=== PATIENT | female | born 1955 | race Caucasian/White ===

== ENCOUNTER 2020-09-05 12:04 | Inpatient (IN) | payer MEDICARE, OTHER ==
[~2020-09-05] VITALS: Ht 167.6 cm; Wt 117.0 kg
[2020-09-05] MEDS ORDERED: methylPREDNISolone SOD SUCC 125 MG/2 ML VL IV ONE (12:30)
[2020-09-05] MEDS ORDERED: cloNIDine HCL 0.1 MG TAB PO ONE (13:30)
[2020-09-05 13:51] LABS: Basophils # (auto) 0 10 ^3/uL (0-0.2); Basophils % (auto) 0.9 % (0.0-2.0); Eosinophils # (auto) 0 10 ^3/uL (0-0.8); Eosinophils % (auto) 0.1 % (0.0-7.0); Hematocrit 34.2 % (36.0-46.0); Hemoglobin 10.9 g/dL (12.2-16.2); Lymphocytes # (auto) 0.6 10 ^3/uL (0.4-5.4); Lymphocytes % (auto) 16.8 % (10.0-50.0); Mean Corpuscular Hemoglobin 30.5 pg (28.0-32.0); Mean Corpuscular Volume 95.3 fL (80.0-100.0); Monocytes # (auto) 0.3 10 ^3/uL (0-1.3); Monocytes % (auto) 7.1 % (0.0-12.0); Neutrophils # (auto) 2.9 10 ^3/uL (1.6-8.6); Neutrophils % (auto) 75.1 % (37.0-80.0); Nucleated Red Blood Cells % 0.1 %; Platelet Count (auto) 113 10^3/uL (140-450); Red Blood Cells 3.59 10^6/uL (4.0-5.20); Red Cell Distribution Width 15.2 % (11.8-14.3); White Blood Cell 3.8 10^3/uL (4.4-10.8)
[2020-09-05] MEDS ORDERED: hydrALAZINE HCL 25 MG TAB PO ONE (14:00)
[2020-09-05] MEDS ORDERED: amLODIPine BESYLATE 5 MG TAB PO ONE (14:00)
[2020-09-05] MEDS ORDERED: METOPROLOL TARTRATE 25 MG TAB PO ONE (14:00)
[2020-09-05] MEDS ORDERED: MORPHINE SULF INJ 2 MG/ML SYRINGE 1ML IV PRN (14:00)
[2020-09-05] MEDS ORDERED: NITROGLYCERIN 0.4 MG SL TAB SL PRN (14:00)
[2020-09-05 14:12] LABS: Albumin 2.8 g/dL (3.4-5.0); Calcium 7.5 mg/dL (8.5-10.1); Potassium 3.3 mmol/L (3.5-5.1)
[2020-09-05] MEDS ORDERED: hydrALAZINE HCL 20 MG/ML VL IV ONE ×2 (14:15→16:45)
[2020-09-05 14:22] LABS: BUN/Creatinine Ratio 11.3; CRP High Sensitivity 2.11 mg/dL (< 0.3); Total Protein 6.3 g/dL (6.4-8.2)
[2020-09-05] MEDS ORDERED: ALBUTEROL SULF 2.5 MG/0.5ML(0.5%) NEB SOLN NEB PRN (14:30)
[2020-09-05] MEDS ORDERED: TEMAZEPAM 15 MG CAP PO PRN (14:30)
[2020-09-05] MEDS ORDERED: ACETAMINOPHEN 500 MG TAB PO PRN (14:30)
[2020-09-05] MEDS ORDERED: PROMETHAZINE HCL 25 MG/ML 1ML IV PRN (14:30)
[2020-09-05] MEDS ORDERED: DEXTROSE (50%) 50ML SYRG IV PRN (14:30)
[2020-09-05] MEDS ORDERED: LACTULOSE 20Gm/30ML SOLN PO PRN (14:30)
[2020-09-05] MEDS ORDERED: traMADol HCL 50 MG TAB PO PRN (14:30)
[2020-09-05] MEDS: cefTRIAXone 1GM/50ML D5W 50 ML IV SCH (15:10)
[2020-09-05] MEDS ORDERED: EZET10TA22 PO (15:44)
[2020-09-05] MEDS ORDERED: INSUINJ48 SC (15:44)
[2020-09-05] MEDS ORDERED: HYDR50TA15 PO (15:44)
[2020-09-05] MEDS ORDERED: LEVO125T7 PO (15:44)
[2020-09-05] MEDS ORDERED: FLUT1SPR5 (15:44)
[2020-09-05] MEDS ORDERED: CLO01T PO (15:44)
[2020-09-05] MEDS ORDERED: AMLO10TA13 PO (15:44)
[2020-09-05] MEDS ORDERED: DOXA1TAB41 PO (15:44)
[2020-09-05] MEDS ORDERED: ALBUAER3 IN (15:44)
[2020-09-05] MEDS ORDERED: MET25T PO (15:44)
[2020-09-05] MEDS ORDERED: ATOR40TA52 PO (15:44)
[2020-09-05] MEDS ORDERED: CLOP75TA28 PO (15:44)
[2020-09-05] MEDS: ACCU-CHEK COMFORT CURVE STRIP VI SCH ×2 (16:49→23:00)
[2020-09-05] MEDS: InsuLIN REG 1unit/0.01ml Soln (100units/ml) SC SCH ×2 (16:49→23:00)
[2020-09-05] MEDS ORDERED: ALBUTEROL SULF 2.5 MG/0.5ML(0.5%) NEB SOLN NEB SCH (18:00)
[2020-09-05] MEDS ORDERED: IPRATROPIUM BROM 0.5 MG/2.5ML INH SOL NEB SCH (18:00)
[2020-09-05] MEDS: BUDESONIDE (INHALATION) 180 MCG IH IN SCH ×2 (19:57→22:00)
[2020-09-05] MEDS: ALBUTEROL SULF HFA 90MCG INH 200DOSE IN PRN ×2 (19:57→23:20)
[2020-09-05] MEDS: hydrALAZINE HCL 25 MG TAB PO SCH ×2 (20:21→23:00)
[2020-09-05] MEDS ORDERED: hydrALAZINE HCL 25 MG TAB PO SCH (22:00)
[2020-09-05] MEDS: METOPROLOL TARTRATE 25 MG TAB PO SCH (23:00)
[2020-09-05] MEDS: ENOXAPARIN SOD 40 MG/0.4 ML SYRINGE SC SCH (23:00)
[2020-09-05] MEDS: SODIUM CHLOR 0.9% PF (SALINE LOCK) 10ML VIAL/SYR IV SCH (23:00)
[2020-09-05] MEDS: DOXYCYCLINE 100MG/250ML 250 ML IV SCH (23:00)
[2020-09-06] MEDS: hydrALAZINE HCL 25 MG TAB PO SCH ×3 (06:12→22:29)
[2020-09-06] MEDS: SODIUM CHLOR 0.9% PF (SALINE LOCK) 10ML VIAL/SYR IV SCH ×3 (06:12→22:29)
[2020-09-06] MEDS ORDERED: SODIUM CHL 0.9% 1000 ML BAG XX ONE (07:00)
[2020-09-06] MEDS: ACCU-CHEK COMFORT CURVE STRIP VI SCH ×3 (07:00→22:00)
[2020-09-06] MEDS: InsuLIN REG 1unit/0.01ml Soln (100units/ml) SC SCH ×3 (07:00→22:00)
[2020-09-06 08:34] LABS: Urine Amorphous Crystal FEW /hpf (None Seen); Urine Bacteria NONE SEEN /hpf (None Seen); Urine Blood 1+ /uL (Negative); Urine Hyaline Cast FEW /lpf (0 - 2); Urine Specific Gravity 1.017 (1.001-1.035); Urine WBC 22 /hpf (0 - 5)
[2020-09-06 08:41] LABS: Sodium Urine 17 mmol/L (40-220)
[2020-09-06 08:44] LABS: Alcohol, Urine < 3.0 mg/dL (0-10); Amphetamine Screen, Urine NEGATIVE (NEGATIVE); Barbiturate Scree,Urine NEGATIVE (NEGATIVE); Benzodiazephine Screen, Urine NEGATIVE (NEGATIVE); Cannabinoid Screen, Urine NEGATIVE (NEGATIVE); Cocaine Screen, Urine NEGATIVE (NEGATIVE); Creatinine, Urine 155 mg/dL (30.0-125.0); Opiate Scree,Urine NEGATIVE (NEGATIVE); Phencyclidine Screen, Urine NEGATIVE (NEGATIVE)
[2020-09-06 08:52] LABS: Protein, Urine 759.9 mg/dL (0.0-11.9)
[2020-09-06] MEDS: cefTRIAXone 1GM/50ML D5W 50 ML IV SCH (09:00)
[2020-09-06] MEDS: DOXYCYCLINE 100MG/250ML 250 ML IV SCH ×2 (10:00→22:29)
[2020-09-06] MEDS: ASCORBIC ACID 1,000 MG TAB PO SCH (10:00)
[2020-09-06] MEDS: CHOLECALCIFEROL (VITD3) 2,000 UNIT CAP PO SCH (10:00)
[2020-09-06] MEDS: ZINC SULFATE 220mg CAP or TAB PO SCH (10:00)
[2020-09-06] MEDS: DexAMETHasone SOD PHOS 10MG/1ML VIAL INJ IV SCH (10:00)
[2020-09-06] MEDS: NITROGLYCERIN 0.2MG/HR TOPICAL PATCH TD SCH (10:00)
[2020-09-06] MEDS: BUDESONIDE (INHALATION) 180 MCG IH IN SCH (10:00)
[2020-09-06] MEDS: ENOXAPARIN SOD 40 MG/0.4 ML SYRINGE SC SCH ×2 (10:00→22:29)
[2020-09-06] MEDS: amLODIPine BESYLATE 5 MG TAB PO SCH (10:00)
[2020-09-06 10:53] LABS: Albumin 2.6 g/dL (3.4-5.0); Calcium 7.7 mg/dL (8.5-10.1); Potassium 3.6 mmol/L (3.5-5.1)
[2020-09-06 10:58] LABS: BUN/Creatinine Ratio 12.9; Bilirubin, Total 0.7 mg/dL (0.2-1.0); Phosphorus 4.7 mg/dL (2.5-4.90); Total Protein 5.9 g/dL (6.4-8.2)
[2020-09-06 11:10] LABS: Basophils # (auto) 0 10 ^3/uL (0-0.2); Basophils % (auto) 0.3 % (0.0-2.0); Eosinophils # (auto) 0 10 ^3/uL (0-0.8); Hematocrit 33.8 % (36.0-46.0); Lymphocytes # (auto) 0.3 10 ^3/uL (0.4-5.4); Lymphocytes % (auto) 16.1 % (10.0-50.0); Mean Corpuscular Hemoglobin 30.7 pg (28.0-32.0); Mean Corpuscular Hgb Conc. 32.5 g/dL (32.0-36.0); Mean Corpuscular Volume 94.6 fL (80.0-100.0); Monocytes # (auto) 0.2 10 ^3/uL (0-1.3); Monocytes % (auto) 8.3 % (0.0-12.0); Neutrophils # (auto) 1.6 10 ^3/uL (1.6-8.6); Neutrophils % (auto) 75.3 % (37.0-80.0); Nucleated Red Blood Cells % 0.3 %; Platelet Count (auto) 126 10^3/uL (140-450); Red Blood Cells 3.57 10^6/uL (4.0-5.20); Red Cell Distribution Width 15.1 % (11.8-14.3); White Blood Cell 2.1 10^3/uL (4.4-10.8)
[2020-09-06] MEDS: ALBUTEROL SULF HFA 90MCG INH 200DOSE IN PRN ×2 (13:12→19:33)
[2020-09-06] MEDS: METOPROLOL TARTRATE 25 MG TAB PO SCH ×2 (20:14)
[2020-09-06] MEDS ORDERED: EPOETIN ALFA 10,000 UNIT/1 ML VIAL SC ONE (21:00)
[2020-09-07] MEDS: MORPHINE SULF INJ 2 MG/ML SYRINGE 1ML IV PRN (02:52)
[2020-09-07] MEDS: cloNIDine HCL 0.1 MG TAB PO PRN (02:52)
[2020-09-07] MEDS: hydrALAZINE HCL 20 MG/ML VL IV PRN (04:30)
[2020-09-07] MEDS: SODIUM CHLOR 0.9% PF (SALINE LOCK) 10ML VIAL/SYR IV SCH ×3 (05:40→22:15)
[2020-09-07] MEDS: hydrALAZINE HCL 25 MG TAB PO SCH ×3 (05:40→21:58)
[2020-09-07] MEDS: BUDESONIDE (INHALATION) 180 MCG IH IN SCH ×2 (05:45→19:22)
[2020-09-07] MEDS: InsuLIN REG 1unit/0.01ml Soln (100units/ml) SC SCH ×4 (06:22→22:03)
[2020-09-07] MEDS: ACCU-CHEK COMFORT CURVE STRIP VI SCH ×4 (06:24→22:01)
[2020-09-07] MEDS: cefTRIAXone 1GM/50ML D5W 50 ML IV SCH (09:00)
[2020-09-07] MEDS: amLODIPine BESYLATE 5 MG TAB PO SCH (10:00)
[2020-09-07] MEDS: DexAMETHasone SOD PHOS 10MG/1ML VIAL INJ IV SCH (10:00)
[2020-09-07] MEDS: METOPROLOL TARTRATE 25 MG TAB PO SCH ×3 (10:00→17:47)
[2020-09-07] MEDS: ASCORBIC ACID 1,000 MG TAB PO SCH (10:00)
[2020-09-07] MEDS: ZINC SULFATE 220mg CAP or TAB PO SCH (10:00)
[2020-09-07] MEDS: ENOXAPARIN SOD 40 MG/0.4 ML SYRINGE SC SCH ×2 (10:00→21:58)
[2020-09-07] MEDS: CHOLECALCIFEROL (VITD3) 2,000 UNIT CAP PO SCH (10:00)
[2020-09-07] MEDS: NITROGLYCERIN 0.2MG/HR TOPICAL PATCH TD SCH (10:00)
[2020-09-07] MEDS: DOXYCYCLINE 100MG/250ML 250 ML IV SCH (22:00)
[2020-09-08] MEDS: cloNIDine HCL 0.1 MG TAB PO PRN ×2 (03:47→20:41)
[2020-09-08] MEDS: SODIUM CHLOR 0.9% PF (SALINE LOCK) 10ML VIAL/SYR IV SCH ×3 (05:01→22:24)
[2020-09-08] MEDS: ALBUTEROL SULF HFA 90MCG INH 200DOSE IN PRN (05:45)
[2020-09-08] MEDS: BUDESONIDE (INHALATION) 180 MCG IH IN SCH ×2 (05:45→06:08)
[2020-09-08] MEDS: CHOLECALCIFEROL (VITD3) 2,000 UNIT CAP PO SCH (08:52)
[2020-09-08] MEDS: DOXYCYCLINE 100MG/250ML 250 ML IV SCH ×2 (08:52→22:26)
[2020-09-08] MEDS: ZINC SULFATE 220mg CAP or TAB PO SCH (08:52)
[2020-09-08] MEDS: DexAMETHasone SOD PHOS 10MG/1ML VIAL INJ IV SCH (08:52)
[2020-09-08] MEDS: amLODIPine BESYLATE 5 MG TAB PO SCH (08:52)
[2020-09-08] MEDS: ASCORBIC ACID 1,000 MG TAB PO SCH (08:52)
[2020-09-08] MEDS: hydrALAZINE HCL 25 MG TAB PO SCH ×3 (08:52→22:26)
[2020-09-08] MEDS: cefTRIAXone 1GM/50ML D5W 50 ML IV SCH (08:52)
[2020-09-08] MEDS: ENOXAPARIN SOD 40 MG/0.4 ML SYRINGE SC SCH ×2 (08:53→22:25)
[2020-09-08] MEDS: NITROGLYCERIN 0.2MG/HR TOPICAL PATCH TD SCH (08:53)
[2020-09-08] MEDS: InsuLIN REG 1unit/0.01ml Soln (100units/ml) SC SCH ×4 (09:03→22:42)
[2020-09-08] MEDS: ACCU-CHEK COMFORT CURVE STRIP VI SCH ×4 (09:16→22:25)
[2020-09-08 12:56] LABS: Urine Amorphous Crystal FEW /hpf (None Seen); Urine Bacteria NONE SEEN /hpf (None Seen); Urine Blood 1+ /uL (Negative); Urine Hyaline Cast FEW /lpf (0 - 2); Urine Specific Gravity 1.019 (1.001-1.035); Urine WBC 2 /hpf (0 - 5)
[2020-09-08] MEDS: METOPROLOL TARTRATE 25 MG TAB PO SCH (22:25)
[2020-09-09] MEDS: hydrALAZINE HCL 20 MG/ML VL IV PRN (04:02)
[2020-09-09] MEDS: SODIUM CHLOR 0.9% PF (SALINE LOCK) 10ML VIAL/SYR IV SCH ×2 (05:44→11:36)
[2020-09-09] MEDS: hydrALAZINE HCL 25 MG TAB PO SCH ×2 (06:28→14:15)
[2020-09-09] MEDS: ACCU-CHEK COMFORT CURVE STRIP VI SCH ×3 (06:35→17:03)
[2020-09-09] MEDS: InsuLIN REG 1unit/0.01ml Soln (100units/ml) SC SCH ×3 (06:39→17:03)
[2020-09-09] MEDS: ALBUTEROL SULF HFA 90MCG INH 200DOSE IN PRN (07:20)
[2020-09-09] MEDS: BUDESONIDE (INHALATION) 180 MCG IH IN SCH ×2 (07:20→22:00)
[2020-09-09] MEDS: cefTRIAXone 1GM/50ML D5W 50 ML IV SCH (09:00)
[2020-09-09] MEDS: DexAMETHasone SOD PHOS 10MG/1ML VIAL INJ IV SCH (10:00)
[2020-09-09] MEDS: ZINC SULFATE 220mg CAP or TAB PO SCH (10:00)
[2020-09-09] MEDS: ENOXAPARIN SOD 40 MG/0.4 ML SYRINGE SC SCH (10:00)
[2020-09-09] MEDS: NITROGLYCERIN 0.2MG/HR TOPICAL PATCH TD SCH (10:00)
[2020-09-09] MEDS: METOPROLOL TARTRATE 25 MG TAB PO SCH (10:00)
[2020-09-09] MEDS: CHOLECALCIFEROL (VITD3) 2,000 UNIT CAP PO SCH (10:00)
[2020-09-09] MEDS: ASCORBIC ACID 1,000 MG TAB PO SCH (10:00)
[2020-09-09] MEDS: amLODIPine BESYLATE 5 MG TAB PO SCH (10:00)
[2020-09-09 10:25] LABS: Calcium 7.9 mg/dL (8.5-10.1)
[2020-09-09] MEDS ORDERED: ENOXAPARIN SOD 100 MG/1 ML SYRINGE SC ONE (11:02)
[2020-09-09] MEDS: DOXYCYCLINE 100MG/250ML 250 ML IV SCH (11:15)
[2020-09-10 00:20] VITALS: BP 175/71
[2020-09-10] MEDS: DOXYCYCLINE 100MG/250ML 250 ML IV SCH ×2 (00:27→08:43)
[2020-09-10] MEDS: SODIUM CHLOR 0.9% PF (SALINE LOCK) 10ML VIAL/SYR IV SCH ×4 (00:27→22:14)
[2020-09-10] MEDS: hydrALAZINE HCL 25 MG TAB PO SCH ×4 (00:28→22:14)
[2020-09-10] MEDS: ENOXAPARIN SOD 40 MG/0.4 ML SYRINGE SC SCH ×3 (00:29→22:15)
[2020-09-10] MEDS: METOPROLOL TARTRATE 25 MG TAB PO SCH ×3 (00:29→22:15)
[2020-09-10] MEDS: ACCU-CHEK COMFORT CURVE STRIP VI SCH ×5 (00:29→22:03)
[2020-09-10] MEDS: InsuLIN REG 1unit/0.01ml Soln (100units/ml) SC SCH ×5 (00:30→22:16)
[2020-09-10 05:30] VITALS: BP 158/83
[2020-09-10 06:03] VITALS: BP 158/83
[2020-09-10] MEDS: ALBUTEROL SULF HFA 90MCG INH 200DOSE IN PRN ×2 (06:35→21:59)
[2020-09-10] MEDS: BUDESONIDE (INHALATION) 180 MCG IH IN SCH ×2 (06:35→21:59)
[2020-09-10] MEDS: cefTRIAXone 1GM/50ML D5W 50 ML IV SCH (08:43)
[2020-09-10] MEDS: DexAMETHasone SOD PHOS 10MG/1ML VIAL INJ IV SCH (08:43)
[2020-09-10] MEDS: ZINC SULFATE 220mg CAP or TAB PO SCH (08:43)
[2020-09-10] MEDS: ASCORBIC ACID 1,000 MG TAB PO SCH (08:44)
[2020-09-10] MEDS: CHOLECALCIFEROL (VITD3) 2,000 UNIT CAP PO SCH (08:44)
[2020-09-10] MEDS: amLODIPine BESYLATE 5 MG TAB PO SCH (08:44)
[2020-09-10] MEDS: NITROGLYCERIN 0.2MG/HR TOPICAL PATCH TD SCH (08:45)
[2020-09-10 13:13] VITALS: BP 143/73
[2020-09-10] MEDS ORDERED: SODIUM CHL 0.9% 1000 ML BAG XX ONE (16:30)
[2020-09-10 17:25] VITALS: BP 162/77
[2020-09-10] MEDS: cloNIDine HCL 0.1 MG TAB PO PRN (18:36)
[2020-09-10 21:08] VITALS: BP 130/75
[2020-09-11 05:00] VITALS: BP 154/69
[2020-09-11] MEDS: hydrALAZINE HCL 25 MG TAB PO SCH ×3 (05:15→21:35)
[2020-09-11] MEDS: SODIUM CHLOR 0.9% PF (SALINE LOCK) 10ML VIAL/SYR IV SCH ×3 (05:47→21:35)
[2020-09-11] MEDS: ACCU-CHEK COMFORT CURVE STRIP VI SCH ×4 (06:12→21:36)
[2020-09-11] MEDS: ALBUTEROL SULF HFA 90MCG INH 200DOSE IN PRN ×2 (06:35→20:01)
[2020-09-11] MEDS: BUDESONIDE (INHALATION) 180 MCG IH IN SCH ×2 (06:35→20:01)
[2020-09-11] MEDS: InsuLIN REG 1unit/0.01ml Soln (100units/ml) SC SCH ×4 (06:47→21:36)
[2020-09-11] MEDS: cefTRIAXone 1GM/50ML D5W 50 ML IV SCH (08:45)
[2020-09-11] MEDS: DexAMETHasone SOD PHOS 10MG/1ML VIAL INJ IV SCH (08:45)
[2020-09-11] MEDS: ZINC SULFATE 220mg CAP or TAB PO SCH (08:45)
[2020-09-11] MEDS: CHOLECALCIFEROL (VITD3) 2,000 UNIT CAP PO SCH (08:46)
[2020-09-11] MEDS: ASCORBIC ACID 1,000 MG TAB PO SCH (08:46)
[2020-09-11] MEDS: METOPROLOL TARTRATE 25 MG TAB PO SCH ×2 (08:46→21:36)
[2020-09-11] MEDS: ENOXAPARIN SOD 40 MG/0.4 ML SYRINGE SC SCH ×2 (08:47→21:36)
[2020-09-11] MEDS: amLODIPine BESYLATE 5 MG TAB PO SCH (08:47)
[2020-09-11] MEDS: NITROGLYCERIN 0.2MG/HR TOPICAL PATCH TD SCH (08:48)
[2020-09-11 09:00] VITALS: BP 145/69
[2020-09-11 13:00] VITALS: BP 145/69
[2020-09-11 17:00] VITALS: BP 150/68
[2020-09-11 21:30] VITALS: BP 163/74
[2020-09-12 05:30] VITALS: BP 150/68
[2020-09-12] MEDS: SODIUM CHLOR 0.9% PF (SALINE LOCK) 10ML VIAL/SYR IV SCH ×3 (06:35→21:30)
[2020-09-12] MEDS: ACCU-CHEK COMFORT CURVE STRIP VI SCH ×4 (06:35→21:30)
[2020-09-12] MEDS: hydrALAZINE HCL 25 MG TAB PO SCH ×3 (06:35→22:04)
[2020-09-12] MEDS: InsuLIN REG 1unit/0.01ml Soln (100units/ml) SC SCH ×4 (06:55→22:06)
[2020-09-12] MEDS ORDERED: SODIUM CHL 0.9% 1000 ML BAG XX ONE (08:45)
[2020-09-12 09:00] VITALS: BP 158/76
[2020-09-12] MEDS: BUDESONIDE (INHALATION) 180 MCG IH IN SCH ×2 (10:00→18:22)
[2020-09-12] MEDS: MORPHINE SULF INJ 2 MG/ML SYRINGE 1ML IV PRN ×2 (11:00→17:13)
[2020-09-12] MEDS: ENOXAPARIN SOD 40 MG/0.4 ML SYRINGE SC SCH ×2 (11:00→22:04)
[2020-09-12] MEDS: cefTRIAXone 1GM/50ML D5W 50 ML IV SCH (11:00)
[2020-09-12] MEDS: METOPROLOL TARTRATE 25 MG TAB PO SCH ×2 (11:01→22:04)
[2020-09-12] MEDS: ZINC SULFATE 220mg CAP or TAB PO SCH (11:01)
[2020-09-12] MEDS: amLODIPine BESYLATE 5 MG TAB PO SCH (11:02)
[2020-09-12] MEDS: CHOLECALCIFEROL (VITD3) 2,000 UNIT CAP PO SCH (11:02)
[2020-09-12] MEDS: ASCORBIC ACID 1,000 MG TAB PO SCH (11:02)
[2020-09-12] MEDS: NITROGLYCERIN 0.2MG/HR TOPICAL PATCH TD SCH (11:03)
[2020-09-12] MEDS: DexAMETHasone SOD PHOS 10MG/1ML VIAL INJ IV SCH (11:03)
[2020-09-12 13:00] VITALS: BP 145/69
[2020-09-12 13:10] VITALS: BP 140/67
[2020-09-12 17:00] VITALS: BP 154/66
[2020-09-12] MEDS: ALBUTEROL SULF HFA 90MCG INH 200DOSE IN PRN (18:21)
[2020-09-12 22:00] VITALS: BP 151/72
[2020-09-12] MEDS: LORazepam 2MG/ML-1ML VIAL IV PRN (22:25)
[2020-09-13 05:00] VITALS: BP 148/64
[2020-09-13] MEDS: SODIUM CHLOR 0.9% PF (SALINE LOCK) 10ML VIAL/SYR IV SCH ×3 (05:57→21:41)
[2020-09-13] MEDS: ACCU-CHEK COMFORT CURVE STRIP VI SCH ×4 (05:57→20:44)
[2020-09-13] MEDS: hydrALAZINE HCL 25 MG TAB PO SCH ×3 (05:57→21:42)
[2020-09-13] MEDS: InsuLIN REG 1unit/0.01ml Soln (100units/ml) SC SCH ×4 (06:00→21:44)
[2020-09-13] MEDS: BUDESONIDE (INHALATION) 180 MCG IH IN SCH ×2 (06:03→22:19)
[2020-09-13] MEDS: ALBUTEROL SULF HFA 90MCG INH 200DOSE IN PRN ×2 (06:08→22:19)
[2020-09-13 06:37] LABS: Basophils # (auto) 0 10 ^3/uL (0-0.2); Basophils % (auto) 0.1 % (0.0-2.0); Eosinophils # (auto) 0 10 ^3/uL (0-0.8); Eosinophils % (auto) 0.1 % (0.0-7.0); Hematocrit 33.3 % (36.0-46.0); Hemoglobin 11.1 g/dL (12.2-16.2); Lymphocytes # (auto) 0.4 10 ^3/uL (0.4-5.4); Lymphocytes % (auto) 6.2 % (10.0-50.0); Mean Corpuscular Hgb Conc. 33.2 g/dL (32.0-36.0); Mean Corpuscular Volume 93.5 fL (80.0-100.0); Monocytes # (auto) 0.4 10 ^3/uL (0-1.3); Monocytes % (auto) 5.2 % (0.0-12.0); Neutrophils # (auto) 6.3 10 ^3/uL (1.6-8.6); Neutrophils % (auto) 88.4 % (37.0-80.0); Platelet Count (auto) 123 10^3/uL (140-450); Red Blood Cells 3.56 10^6/uL (4.0-5.20); Red Cell Distribution Width 14.9 % (11.8-14.3); White Blood Cell 7.2 10^3/uL (4.4-10.8)
[2020-09-13 06:50] LABS: Potassium 4.6 mmol/L (3.5-5.1)
[2020-09-13 07:15] LABS: Albumin 2.2 g/dL (3.4-5.0); BUN/Creatinine Ratio 22.9; Bilirubin, Total 0.9 mg/dL (0.2-1.0); Total Protein 5.7 g/dL (6.4-8.2)
[2020-09-13 08:53] VITALS: BP 146/62
[2020-09-13] MEDS: ZINC SULFATE 220mg CAP or TAB PO SCH (09:05)
[2020-09-13] MEDS: METOPROLOL TARTRATE 25 MG TAB PO SCH ×2 (09:05→21:43)
[2020-09-13] MEDS: DexAMETHasone SOD PHOS 10MG/1ML VIAL INJ IV SCH (09:05)
[2020-09-13] MEDS: CHOLECALCIFEROL (VITD3) 2,000 UNIT CAP PO SCH (09:06)
[2020-09-13] MEDS: amLODIPine BESYLATE 5 MG TAB PO SCH (09:06)
[2020-09-13] MEDS: ASCORBIC ACID 1,000 MG TAB PO SCH (09:06)
[2020-09-13] MEDS: ENOXAPARIN SOD 40 MG/0.4 ML SYRINGE SC SCH ×2 (09:06→21:43)
[2020-09-13] MEDS: NITROGLYCERIN 0.2MG/HR TOPICAL PATCH TD SCH (09:07)
[2020-09-13 12:51] VITALS: BP 121/58
[2020-09-13 16:37] VITALS: BP 136/59
[2020-09-13 21:16] VITALS: BP 159/69
[2020-09-13] MEDS: LORazepam 2MG/ML-1ML VIAL IV PRN (22:26)
[2020-09-14 05:00] VITALS: BP 144/72
[2020-09-14] MEDS: ACCU-CHEK COMFORT CURVE STRIP VI SCH ×4 (05:31→21:46)
[2020-09-14] MEDS: SODIUM CHLOR 0.9% PF (SALINE LOCK) 10ML VIAL/SYR IV SCH ×3 (05:34→21:43)
[2020-09-14] MEDS: hydrALAZINE HCL 25 MG TAB PO SCH ×3 (05:34→21:43)
[2020-09-14] MEDS: InsuLIN REG 1unit/0.01ml Soln (100units/ml) SC SCH ×4 (05:37→21:54)
[2020-09-14] MEDS: BUDESONIDE (INHALATION) 180 MCG IH IN SCH ×2 (05:55→06:18)
[2020-09-14] MEDS: ENOXAPARIN SOD 40 MG/0.4 ML SYRINGE SC SCH ×2 (08:40→21:45)
[2020-09-14] MEDS: DexAMETHasone SOD PHOS 10MG/1ML VIAL INJ IV SCH (08:40)
[2020-09-14] MEDS: NITROGLYCERIN 0.2MG/HR TOPICAL PATCH TD SCH (08:42)
[2020-09-14] MEDS: amLODIPine BESYLATE 5 MG TAB PO SCH (08:42)
[2020-09-14] MEDS: ASCORBIC ACID 1,000 MG TAB PO SCH (08:42)
[2020-09-14] MEDS: ZINC SULFATE 220mg CAP or TAB PO SCH (08:43)
[2020-09-14] MEDS: CHOLECALCIFEROL (VITD3) 2,000 UNIT CAP PO SCH (08:43)
[2020-09-14] MEDS: METOPROLOL TARTRATE 25 MG TAB PO SCH ×2 (08:43→21:44)
[2020-09-14 09:00] VITALS: BP 144/68
[2020-09-14 12:55] VITALS: BP 124/61
[2020-09-14] MEDS: LORazepam 2MG/ML-1ML VIAL IV PRN (21:30)
[2020-09-14 22:00] VITALS: BP 145/61
[2020-09-15 05:00] VITALS: BP 145/80
[2020-09-15] MEDS: SODIUM CHLOR 0.9% PF (SALINE LOCK) 10ML VIAL/SYR IV SCH ×3 (05:53→22:37)
[2020-09-15] MEDS: hydrALAZINE HCL 25 MG TAB PO SCH ×3 (05:54→22:38)
[2020-09-15] MEDS: ALBUTEROL SULF HFA 90MCG INH 200DOSE IN PRN ×2 (05:55→18:57)
[2020-09-15] MEDS: BUDESONIDE (INHALATION) 180 MCG IH IN SCH ×2 (05:55→18:57)
[2020-09-15] MEDS: LORazepam 2MG/ML-1ML VIAL IV PRN (06:52)
[2020-09-15] MEDS: ACCU-CHEK COMFORT CURVE STRIP VI SCH ×4 (06:53→22:39)
[2020-09-15] MEDS: LEVOTHYROXINE SODIUM 50 MCG TAB PO SCH (06:53)
[2020-09-15] MEDS: InsuLIN REG 1unit/0.01ml Soln (100units/ml) SC SCH ×4 (06:54→22:43)
[2020-09-15] MEDS ORDERED: SODIUM CHL 0.9% 1000 ML BAG XX ONE (07:00)
[2020-09-15 09:00] VITALS: BP_SYST 124; BP_SYST 163; BP_DIAS 73; BP_DIAS 75
[2020-09-15] MEDS: ZINC SULFATE 220mg CAP or TAB PO SCH (10:25)
[2020-09-15] MEDS: DexAMETHasone SOD PHOS 10MG/1ML VIAL INJ IV SCH (10:25)
[2020-09-15] MEDS: CHOLECALCIFEROL (VITD3) 2,000 UNIT CAP PO SCH (10:25)
[2020-09-15] MEDS: METOPROLOL TARTRATE 25 MG TAB PO SCH ×2 (10:26→22:38)
[2020-09-15] MEDS: amLODIPine BESYLATE 5 MG TAB PO SCH (10:26)
[2020-09-15] MEDS: ENOXAPARIN SOD 40 MG/0.4 ML SYRINGE SC SCH ×2 (10:28→22:39)
[2020-09-15] MEDS: NITROGLYCERIN 0.2MG/HR TOPICAL PATCH TD SCH (10:28)
[2020-09-15] MEDS: ASCORBIC ACID 1,000 MG TAB PO SCH (11:46)
[2020-09-15 13:00] VITALS: BP 132/86
[2020-09-15 17:00] VITALS: BP 135/62
[2020-09-15 22:00] VITALS: BP 154/78
[2020-09-16 05:00] VITALS: BP 151/71
[2020-09-16] MEDS: SODIUM CHLOR 0.9% PF (SALINE LOCK) 10ML VIAL/SYR IV SCH ×3 (05:51→22:23)
[2020-09-16] MEDS: hydrALAZINE HCL 25 MG TAB PO SCH ×3 (05:52→22:23)
[2020-09-16] MEDS: ALBUTEROL SULF HFA 90MCG INH 200DOSE IN PRN ×2 (05:55→20:01)
[2020-09-16] MEDS: BUDESONIDE (INHALATION) 180 MCG IH IN SCH ×2 (05:55→20:01)
[2020-09-16 06:27] LABS: Basophils # (auto) 0 10 ^3/uL (0-0.2); Basophils % (auto) 0.2 % (0.0-2.0); Eosinophils # (auto) 0 10 ^3/uL (0-0.8); Eosinophils % (auto) 0.1 % (0.0-7.0); Hematocrit 31.8 % (36.0-46.0); Hemoglobin 10.5 g/dL (12.2-16.2); Lymphocytes # (auto) 0.5 10 ^3/uL (0.4-5.4); Lymphocytes % (auto) 3.9 % (10.0-50.0); Mean Corpuscular Hemoglobin 30.9 pg (28.0-32.0); Mean Corpuscular Hgb Conc. 33.1 g/dL (32.0-36.0); Mean Corpuscular Volume 93.4 fL (80.0-100.0); Monocytes # (auto) 0.5 10 ^3/uL (0-1.3); Monocytes % (auto) 3.6 % (0.0-12.0); Neutrophils # (auto) 12.4 10 ^3/uL (1.6-8.6); Neutrophils % (auto) 92.2 % (37.0-80.0); Platelet Count (auto) 147 10^3/uL (140-450); Red Cell Distribution Width 14.5 % (11.8-14.3); White Blood Cell 13.5 10^3/uL (4.4-10.8)
[2020-09-16 06:45] LABS: BUN/Creatinine Ratio 27.5; Bilirubin, Total 0.7 mg/dL (0.2-1.0); Calcium 7.7 mg/dL (8.5-10.1); Magnesium 2.7 mg/dL (1.6-2.6); Total Protein 5.4 g/dL (6.4-8.2)
[2020-09-16] MEDS: LEVOTHYROXINE SODIUM 50 MCG TAB PO SCH (07:03)
[2020-09-16] MEDS: ACCU-CHEK COMFORT CURVE STRIP VI SCH ×4 (07:04→22:24)
[2020-09-16] MEDS: InsuLIN REG 1unit/0.01ml Soln (100units/ml) SC SCH ×4 (07:07→22:32)
[2020-09-16] MEDS: ZINC SULFATE 220mg CAP or TAB PO SCH (10:11)
[2020-09-16] MEDS: DexAMETHasone SOD PHOS 10MG/1ML VIAL INJ IV SCH (10:12)
[2020-09-16] MEDS: METOPROLOL TARTRATE 25 MG TAB PO SCH ×2 (10:14→22:24)
[2020-09-16] MEDS: amLODIPine BESYLATE 5 MG TAB PO SCH (10:16)
[2020-09-16] MEDS: ASCORBIC ACID 1,000 MG TAB PO SCH (10:18)
[2020-09-16] MEDS: CHOLECALCIFEROL (VITD3) 2,000 UNIT CAP PO SCH (10:20)
[2020-09-16] MEDS: ENOXAPARIN SOD 40 MG/0.4 ML SYRINGE SC SCH ×2 (10:20→22:00)
[2020-09-16] MEDS: NITROGLYCERIN 0.2MG/HR TOPICAL PATCH TD SCH (10:21)
[2020-09-16] MEDS: DOPamine 1600MCG/ML D5W 250 ML IV SCH (18:32)
[2020-09-16 21:00] VITALS: BP 129/48
[2020-09-17 05:00] VITALS: BP 131/75
[2020-09-17] MEDS: hydrALAZINE HCL 25 MG TAB PO SCH ×3 (05:49→22:34)
[2020-09-17] MEDS: InsuLIN REG 1unit/0.01ml Soln (100units/ml) SC SCH ×4 (06:16→22:37)
[2020-09-17] MEDS: ACCU-CHEK COMFORT CURVE STRIP VI SCH ×4 (06:16→22:34)
[2020-09-17] MEDS: SODIUM CHLOR 0.9% PF (SALINE LOCK) 10ML VIAL/SYR IV SCH ×3 (06:17→22:34)
[2020-09-17] MEDS: LEVOTHYROXINE SODIUM 50 MCG TAB PO SCH (06:17)
[2020-09-17] MEDS: BUDESONIDE (INHALATION) 180 MCG IH IN SCH ×2 (06:48→21:08)
[2020-09-17] MEDS: ALBUTEROL SULF HFA 90MCG INH 200DOSE IN PRN ×2 (06:48→21:08)
[2020-09-17] MEDS ORDERED: SODIUM CHL 0.9% 1000 ML BAG XX ONE (07:00)
[2020-09-17 07:11] LABS: Basophils # (auto) 0 10 ^3/uL (0-0.2); Basophils % (auto) 0.2 % (0.0-2.0); Eosinophils # (auto) 0 10 ^3/uL (0-0.8); Eosinophils % (auto) 0.1 % (0.0-7.0); Hematocrit 34.2 % (36.0-46.0); Hemoglobin 11.4 g/dL (12.2-16.2); Lymphocytes # (auto) 0.6 10 ^3/uL (0.4-5.4); Lymphocytes % (auto) 3.2 % (10.0-50.0); Mean Corpuscular Hemoglobin 31.4 pg (28.0-32.0); Mean Corpuscular Hgb Conc. 33.4 g/dL (32.0-36.0); Mean Corpuscular Volume 94.1 fL (80.0-100.0); Monocytes # (auto) 0.8 10 ^3/uL (0-1.3); Monocytes % (auto) 3.9 % (0.0-12.0); Neutrophils % (auto) 92.6 % (37.0-80.0); Nucleated Red Blood Cells % 0.1 %; Platelet Count (auto) 195 10^3/uL (140-450); Red Blood Cells 3.64 10^6/uL (4.0-5.20); Red Cell Distribution Width 14.6 % (11.8-14.3); White Blood Cell 19.5 10^3/uL (4.4-10.8)
[2020-09-17 07:15] LABS: Calcium 8.3 mg/dL (8.5-10.1); Potassium 5.2 mmol/L (3.5-5.1)
[2020-09-17 07:20] LABS: Albumin 2.3 g/dL (3.4-5.0); BUN/Creatinine Ratio 29.8; Total Protein 6.2 g/dL (6.4-8.2)
[2020-09-17 08:00] VITALS: BP 142/72
[2020-09-17] MEDS: amLODIPine BESYLATE 5 MG TAB PO SCH (10:00)
[2020-09-17] MEDS: ASCORBIC ACID 1,000 MG TAB PO SCH (10:00)
[2020-09-17] MEDS: ZINC SULFATE 220mg CAP or TAB PO SCH (10:00)
[2020-09-17] MEDS: CHOLECALCIFEROL (VITD3) 2,000 UNIT CAP PO SCH (10:00)
[2020-09-17] MEDS: DexAMETHasone SOD PHOS 10MG/1ML VIAL INJ IV SCH (10:00)
[2020-09-17] MEDS: ENOXAPARIN SOD 40 MG/0.4 ML SYRINGE SC SCH ×2 (10:00→22:34)
[2020-09-17] MEDS: METOPROLOL TARTRATE 25 MG TAB PO SCH ×2 (10:00→22:35)
[2020-09-17] MEDS: NITROGLYCERIN 0.2MG/HR TOPICAL PATCH TD SCH (10:00)
[2020-09-17 12:00] VITALS: BP 132/65
[2020-09-17] MEDS ORDERED: ETOMIDATE (2MG/ML) 20ML VIAL IV ONE (12:28)
[2020-09-17] MEDS ORDERED: SUCCINYLCHOLINE CHLORIDE 20 MG/ML 10ML VIAL IV ONE (12:28)
[2020-09-17] MEDS ORDERED: ROCURONIUM 10MG/ML 10ML VIAL IV ONE (12:28)
[2020-09-17] MEDS: DOPamine 1600MCG/ML D5W 250 ML IV SCH (14:44)
[2020-09-17 15:00] VITALS: BP 141/71
[2020-09-17 21:00] VITALS: BP 134/70
[2020-09-17] MEDS ORDERED: EPOETIN ALFA 10,000 UNIT/1 ML VIAL SC ONE (21:00)
[2020-09-18 05:00] VITALS: BP 130/60
[2020-09-18] MEDS: hydrALAZINE HCL 25 MG TAB PO SCH ×3 (05:59→22:03)
[2020-09-18] MEDS: SODIUM CHLOR 0.9% PF (SALINE LOCK) 10ML VIAL/SYR IV SCH ×3 (06:20→22:03)
[2020-09-18] MEDS: LEVOTHYROXINE SODIUM 50 MCG TAB PO SCH (06:20)
[2020-09-18] MEDS: ACCU-CHEK COMFORT CURVE STRIP VI SCH ×4 (06:23→22:04)
[2020-09-18] MEDS: InsuLIN REG 1unit/0.01ml Soln (100units/ml) SC SCH ×4 (06:23→22:08)
[2020-09-18 06:38] LABS: Albumin 2.2 g/dL (3.4-5.0); BUN/Creatinine Ratio 30.4; Bilirubin, Total 0.9 mg/dL (0.2-1.0); Calcium 8.2 mg/dL (8.5-10.1); Total Protein 6.2 g/dL (6.4-8.2)
[2020-09-18 06:48] LABS: Potassium 5.6 mmol/L (3.5-5.1)
[2020-09-18] MEDS ORDERED: SODIUM ZIRCONIUM CYCL 10 GM PAK PO ONE (07:00)
[2020-09-18 08:48] VITALS: BP 130/60
[2020-09-18 08:51] VITALS: BP 139/54
[2020-09-18] MEDS: BUDESONIDE (INHALATION) 180 MCG IH IN SCH ×2 (09:01→22:10)
[2020-09-18] MEDS: ALBUTEROL SULF HFA 90MCG INH 200DOSE IN PRN ×2 (09:01→22:10)
[2020-09-18] MEDS: CHOLECALCIFEROL (VITD3) 2,000 UNIT CAP PO SCH (10:00)
[2020-09-18] MEDS: METOPROLOL TARTRATE 25 MG TAB PO SCH ×2 (10:00→22:04)
[2020-09-18] MEDS: NITROGLYCERIN 0.2MG/HR TOPICAL PATCH TD SCH (10:00)
[2020-09-18] MEDS: ASCORBIC ACID 1,000 MG TAB PO SCH (10:00)
[2020-09-18] MEDS: ZINC SULFATE 220mg CAP or TAB PO SCH (10:00)
[2020-09-18] MEDS: ENOXAPARIN SOD 40 MG/0.4 ML SYRINGE SC SCH ×2 (10:00→22:04)
[2020-09-18] MEDS: DexAMETHasone SOD PHOS 10MG/1ML VIAL INJ IV SCH (10:00)
[2020-09-18] MEDS: amLODIPine BESYLATE 5 MG TAB PO SCH (10:00)
[2020-09-18] MEDS: LORazepam 2MG/ML-1ML VIAL IV PRN (11:52)
[2020-09-18 12:30] VITALS: BP 146/67
[2020-09-18] MEDS ORDERED: FUROSEMIDE 100 MG/10ML VIAL IV ONE (12:45)
[2020-09-18] MEDS: DOPamine 1600MCG/ML D5W 250 ML IV SCH (12:58)
[2020-09-18 15:51] VITALS: BP 136/68
[2020-09-18 22:00] VITALS: BP 142/68
[2020-09-19 05:00] VITALS: BP 143/73
[2020-09-19] MEDS: SODIUM CHLOR 0.9% PF (SALINE LOCK) 10ML VIAL/SYR IV SCH ×3 (05:46→22:15)
[2020-09-19] MEDS: hydrALAZINE HCL 25 MG TAB PO SCH ×3 (06:18→22:16)
[2020-09-19] MEDS: LEVOTHYROXINE SODIUM 50 MCG TAB PO SCH (06:19)
[2020-09-19] MEDS: ACCU-CHEK COMFORT CURVE STRIP VI SCH ×4 (06:19→22:16)
[2020-09-19] MEDS: InsuLIN REG 1unit/0.01ml Soln (100units/ml) SC SCH ×4 (06:23→22:20)
[2020-09-19 06:30] LABS: Albumin 2.1 g/dL (3.4-5.0); BUN/Creatinine Ratio 28.6; Bilirubin, Total 0.9 mg/dL (0.2-1.0); Calcium 7.9 mg/dL (8.5-10.1)
[2020-09-19 09:00] VITALS: BP 144/68
[2020-09-19] MEDS: METOPROLOL TARTRATE 25 MG TAB PO SCH ×2 (10:00→22:16)
[2020-09-19] MEDS: amLODIPine BESYLATE 5 MG TAB PO SCH (10:00)
[2020-09-19] MEDS: BUDESONIDE (INHALATION) 180 MCG IH IN SCH ×2 (10:00→19:46)
[2020-09-19] MEDS: ZINC SULFATE 220mg CAP or TAB PO SCH (10:26)
[2020-09-19] MEDS: CHOLECALCIFEROL (VITD3) 2,000 UNIT CAP PO SCH (10:26)
[2020-09-19] MEDS: ASCORBIC ACID 1,000 MG TAB PO SCH (10:26)
[2020-09-19] MEDS: ENOXAPARIN SOD 40 MG/0.4 ML SYRINGE SC SCH ×2 (10:26→22:16)
[2020-09-19] MEDS: DexAMETHasone SOD PHOS 10MG/1ML VIAL INJ IV SCH (10:26)
[2020-09-19] MEDS: NITROGLYCERIN 0.2MG/HR TOPICAL PATCH TD SCH (10:30)
[2020-09-19] MEDS: DOPamine 1600MCG/ML D5W 250 ML IV SCH (11:12)
[2020-09-19 13:00] VITALS: BP 123/65
[2020-09-19] MEDS: ALBUTEROL SULF HFA 90MCG INH 200DOSE IN PRN ×2 (16:36→19:46)
[2020-09-19 17:00] VITALS: BP 135/68
[2020-09-19 22:00] VITALS: BP 147/73
[2020-09-20 05:00] VITALS: BP 126/73
[2020-09-20] MEDS: hydrALAZINE HCL 25 MG TAB PO SCH ×3 (05:48→22:36)
[2020-09-20] MEDS: SODIUM CHLOR 0.9% PF (SALINE LOCK) 10ML VIAL/SYR IV SCH ×3 (05:48→22:36)
[2020-09-20] MEDS: ACCU-CHEK COMFORT CURVE STRIP VI SCH ×4 (06:25→22:37)
[2020-09-20] MEDS: LEVOTHYROXINE SODIUM 50 MCG TAB PO SCH (06:25)
[2020-09-20] MEDS: InsuLIN REG 1unit/0.01ml Soln (100units/ml) SC SCH ×4 (06:41→23:37)
[2020-09-20] MEDS ORDERED: SODIUM CHL 0.9% 1000 ML BAG XX ONE ×2 (07:00→09:45)
[2020-09-20] MEDS: BUDESONIDE (INHALATION) 180 MCG IH IN SCH ×2 (07:08→22:00)
[2020-09-20] MEDS: ALBUTEROL SULF HFA 90MCG INH 200DOSE IN PRN (07:12)
[2020-09-20 09:00] VITALS: BP 115/67
[2020-09-20 09:53] LABS: Calcium 7.9 mg/dL (8.5-10.1)
[2020-09-20 09:56] LABS: BUN/Creatinine Ratio 31.6; Bilirubin, Total 0.9 mg/dL (0.2-1.0); Total Protein 5.8 g/dL (6.4-8.2)
[2020-09-20] MEDS: DOPamine 1600MCG/ML D5W 250 ML IV SCH (10:13)
[2020-09-20] MEDS: DexAMETHasone SOD PHOS 10MG/1ML VIAL INJ IV SCH (10:13)
[2020-09-20] MEDS: ZINC SULFATE 220mg CAP or TAB PO SCH (10:14)
[2020-09-20] MEDS: ENOXAPARIN SOD 40 MG/0.4 ML SYRINGE SC SCH ×2 (10:14→22:37)
[2020-09-20] MEDS: CHOLECALCIFEROL (VITD3) 2,000 UNIT CAP PO SCH (10:14)
[2020-09-20] MEDS: ASCORBIC ACID 1,000 MG TAB PO SCH (10:14)
[2020-09-20] MEDS: amLODIPine BESYLATE 5 MG TAB PO SCH (12:14)
[2020-09-20] MEDS: METOPROLOL TARTRATE 25 MG TAB PO SCH ×2 (12:14→22:37)
[2020-09-20] MEDS: NITROGLYCERIN 0.2MG/HR TOPICAL PATCH TD SCH (12:15)
[2020-09-20 13:00] VITALS: BP 135/70
[2020-09-20] MEDS: LORazepam 2MG/ML-1ML VIAL IV PRN (14:37)
[2020-09-20 17:00] VITALS: BP 126/63
[2020-09-20 21:27] VITALS: BP 142/69
[2020-09-21] MEDS: hydrALAZINE HCL 25 MG TAB PO SCH ×3 (05:36→22:38)
[2020-09-21] MEDS: SODIUM CHLOR 0.9% PF (SALINE LOCK) 10ML VIAL/SYR IV SCH ×3 (05:37→22:39)
[2020-09-21 06:19] VITALS: BP 124/68
[2020-09-21] MEDS: BUDESONIDE (INHALATION) 180 MCG IH IN SCH ×2 (06:20→18:42)
[2020-09-21] MEDS: LEVOTHYROXINE SODIUM 50 MCG TAB PO SCH (06:50)
[2020-09-21] MEDS: ACCU-CHEK COMFORT CURVE STRIP VI SCH ×4 (06:50→22:00)
[2020-09-21] MEDS: InsuLIN REG 1unit/0.01ml Soln (100units/ml) SC SCH ×4 (06:55→22:00)
[2020-09-21] MEDS ORDERED: SODIUM CHL 0.9% 1000 ML BAG XX ONE (07:00)
[2020-09-21 09:00] VITALS: BP 136/59
[2020-09-21] MEDS: ASCORBIC ACID 1,000 MG TAB PO SCH (09:08)
[2020-09-21] MEDS: CHOLECALCIFEROL (VITD3) 2,000 UNIT CAP PO SCH (09:08)
[2020-09-21] MEDS: DexAMETHasone SOD PHOS 10MG/1ML VIAL INJ IV SCH (09:09)
[2020-09-21] MEDS: ZINC SULFATE 220mg CAP or TAB PO SCH (09:09)
[2020-09-21] MEDS: METOPROLOL TARTRATE 25 MG TAB PO SCH ×2 (09:10→22:37)
[2020-09-21] MEDS: NITROGLYCERIN 0.2MG/HR TOPICAL PATCH TD SCH (09:10)
[2020-09-21] MEDS: ENOXAPARIN SOD 40 MG/0.4 ML SYRINGE SC SCH (09:10)
[2020-09-21] MEDS: amLODIPine BESYLATE 5 MG TAB PO SCH (09:16)
[2020-09-21] MEDS: DOPamine 1600MCG/ML D5W 250 ML IV SCH (09:16)
[2020-09-21 10:20] LABS: Basophils # (auto) 0 10 ^3/uL (0-0.2); Basophils % (auto) 0.1 % (0.0-2.0); Eosinophils # (auto) 0 10 ^3/uL (0-0.8); Eosinophils % (auto) 0.1 % (0.0-7.0); Hematocrit 32.1 % (36.0-46.0); Hemoglobin 10.7 g/dL (12.2-16.2); Lymphocytes # (auto) 0.4 10 ^3/uL (0.4-5.4); Lymphocytes % (auto) 2.5 % (10.0-50.0); Mean Corpuscular Hemoglobin 30.4 pg (28.0-32.0); Mean Corpuscular Hgb Conc. 33.3 g/dL (32.0-36.0); Mean Corpuscular Volume 91.4 fL (80.0-100.0); Monocytes # (auto) 0.8 10 ^3/uL (0-1.3); Monocytes % (auto) 4.7 % (0.0-12.0); Neutrophils # (auto) 14.9 10 ^3/uL (1.6-8.6); Neutrophils % (auto) 92.6 % (37.0-80.0); Platelet Count (auto) 175 10^3/uL (140-450); Red Blood Cells 3.51 10^6/uL (4.0-5.20); White Blood Cell 16.1 10^3/uL (4.4-10.8)
[2020-09-21 12:57] VITALS: BP 137/66
[2020-09-21] MEDS ORDERED: hydrALAZINE HCL 20 MG/ML VL IV PRN (14:15)
[2020-09-21] MEDS: LORazepam 2MG/ML-1ML VIAL IV PRN (15:34)
[2020-09-21] MEDS: ALBUTEROL SULF HFA 90MCG INH 200DOSE IN PRN ×2 (16:19→18:42)
[2020-09-21 17:00] VITALS: BP 130/52
[2020-09-21 20:00] VITALS: BP 137/66
[2020-09-21] MEDS ORDERED: EPOETIN ALFA 10,000 UNIT/1 ML VIAL SC ONE (21:00)
[2020-09-21 21:58] VITALS: BP 126/66
[2020-09-22] MEDS: ENOXAPARIN SOD 40 MG/0.4 ML SYRINGE SC SCH ×3 (01:05→22:15)
[2020-09-22] MEDS: LEVOTHYROXINE SODIUM 50 MCG TAB PO SCH (06:15)
[2020-09-22] MEDS: hydrALAZINE HCL 25 MG TAB PO SCH ×3 (06:16→22:15)
[2020-09-22 06:19] VITALS: BP 129/67
[2020-09-22] MEDS: ALBUTEROL SULF HFA 90MCG INH 200DOSE IN PRN ×3 (06:20→20:14)
[2020-09-22] MEDS: InsuLIN REG 1unit/0.01ml Soln (100units/ml) SC SCH ×4 (06:46→22:23)
[2020-09-22] MEDS: DOPamine 1600MCG/ML D5W 250 ML IV SCH (06:49)
[2020-09-22] MEDS: ACCU-CHEK COMFORT CURVE STRIP VI SCH ×4 (06:49→22:17)
[2020-09-22] MEDS: SODIUM CHLOR 0.9% PF (SALINE LOCK) 10ML VIAL/SYR IV SCH ×3 (06:49→22:14)
[2020-09-22 08:40] VITALS: BP 124/62
[2020-09-22] MEDS: ASCORBIC ACID 1,000 MG TAB PO SCH (08:55)
[2020-09-22] MEDS: ZINC SULFATE 220mg CAP or TAB PO SCH (08:55)
[2020-09-22] MEDS: CHOLECALCIFEROL (VITD3) 2,000 UNIT CAP PO SCH (08:56)
[2020-09-22] MEDS: amLODIPine BESYLATE 5 MG TAB PO SCH (08:57)
[2020-09-22] MEDS: METOPROLOL TARTRATE 25 MG TAB PO SCH ×2 (08:57→22:18)
[2020-09-22] MEDS: DexAMETHasone SOD PHOS 10MG/1ML VIAL INJ IV SCH (08:58)
[2020-09-22 12:56] VITALS: BP 125/50
[2020-09-22 16:58] VITALS: BP 115/53
[2020-09-22] MEDS: Glucerna Carbsteady SHAKE Vanilla 8oz PO SCH (18:00)
[2020-09-22] MEDS: BUDESONIDE (INHALATION) 180 MCG IH IN SCH ×2 (20:14→22:00)
[2020-09-22 22:00] VITALS: BP 134/69
[2020-09-23] MEDS: DOPamine 1600MCG/ML D5W 250 ML IV SCH (04:00)
[2020-09-23 05:00] VITALS: BP 140/61
[2020-09-23] MEDS: SODIUM CHLOR 0.9% PF (SALINE LOCK) 10ML VIAL/SYR IV SCH ×3 (05:06→22:10)
[2020-09-23] MEDS: hydrALAZINE HCL 25 MG TAB PO SCH ×3 (05:38→22:32)
[2020-09-23] MEDS: LEVOTHYROXINE SODIUM 50 MCG TAB PO SCH (06:24)
[2020-09-23] MEDS: ACCU-CHEK COMFORT CURVE STRIP VI SCH ×4 (06:25→22:11)
[2020-09-23] MEDS: InsuLIN REG 1unit/0.01ml Soln (100units/ml) SC SCH ×4 (06:26→22:12)
[2020-09-23 06:53] LABS: Basophils # (auto) 0 10 ^3/uL (0-0.2); Basophils % (auto) 0.2 % (0.0-2.0); Eosinophils # (auto) 0 10 ^3/uL (0-0.8); Eosinophils % (auto) 0.1 % (0.0-7.0); Hematocrit 30.8 % (36.0-46.0); Hemoglobin 10.4 g/dL (12.2-16.2); Lymphocytes # (auto) 0.4 10 ^3/uL (0.4-5.4); Lymphocytes % (auto) 2.5 % (10.0-50.0); Mean Corpuscular Hemoglobin 30.8 pg (28.0-32.0); Mean Corpuscular Hgb Conc. 33.9 g/dL (32.0-36.0); Mean Corpuscular Volume 90.9 fL (80.0-100.0); Monocytes # (auto) 0.4 10 ^3/uL (0-1.3); Monocytes % (auto) 2.7 % (0.0-12.0); Neutrophils # (auto) 14.3 10 ^3/uL (1.6-8.6); Neutrophils % (auto) 94.5 % (37.0-80.0); Platelet Count (auto) 155 10^3/uL (140-450); Red Blood Cells 3.39 10^6/uL (4.0-5.20); Red Cell Distribution Width 15.2 % (11.8-14.3); White Blood Cell 15.1 10^3/uL (4.4-10.8)
[2020-09-23 07:06] LABS: Potassium 5.2 mmol/L (3.5-5.1)
[2020-09-23 07:14] LABS: Albumin 2.3 g/dL (3.4-5.0); BUN/Creatinine Ratio 30.2; Bilirubin, Total 0.9 mg/dL (0.2-1.0); Calcium 8.2 mg/dL (8.5-10.1); Total Protein 6.2 g/dL (6.4-8.2)
[2020-09-23] MEDS: DexAMETHasone SOD PHOS 10MG/1ML VIAL INJ IV SCH (09:26)
[2020-09-23] MEDS: ZINC SULFATE 220mg CAP or TAB PO SCH (09:26)
[2020-09-23] MEDS: ENOXAPARIN SOD 40 MG/0.4 ML SYRINGE SC SCH ×2 (09:26→22:11)
[2020-09-23] MEDS: ASCORBIC ACID 1,000 MG TAB PO SCH (09:26)
[2020-09-23] MEDS: Glucerna Carbsteady SHAKE Vanilla 8oz PO SCH ×3 (09:26→18:29)
[2020-09-23] MEDS: CHOLECALCIFEROL (VITD3) 2,000 UNIT CAP PO SCH (10:00)
[2020-09-23] MEDS: BUDESONIDE (INHALATION) 180 MCG IH IN SCH ×3 (10:00→19:05)
[2020-09-23] MEDS: METOPROLOL TARTRATE 25 MG TAB PO SCH ×2 (11:49→22:32)
[2020-09-23] MEDS: amLODIPine BESYLATE 5 MG TAB PO SCH (11:49)
[2020-09-23 13:00] VITALS: BP 126/67
[2020-09-23] MEDS: ALBUTEROL SULF HFA 90MCG INH 200DOSE IN PRN ×2 (15:05→15:12)
[2020-09-23 17:00] VITALS: BP 103/50
[2020-09-23] MEDS: LORazepam 2MG/ML-1ML VIAL IV PRN (20:10)
[2020-09-23 22:00] VITALS: BP 120/63
[2020-09-24] MEDS: ALBUTEROL SULF HFA 90MCG INH 200DOSE IN PRN (02:40)
[2020-09-24 05:00] VITALS: BP 136/57
[2020-09-24] MEDS: SODIUM CHLOR 0.9% PF (SALINE LOCK) 10ML VIAL/SYR IV SCH ×3 (06:20→22:02)
[2020-09-24] MEDS: hydrALAZINE HCL 25 MG TAB PO SCH ×3 (06:20→22:04)
[2020-09-24] MEDS: LEVOTHYROXINE SODIUM 50 MCG TAB PO SCH (06:21)
[2020-09-24] MEDS: ACCU-CHEK COMFORT CURVE STRIP VI SCH ×4 (06:21→22:26)
[2020-09-24] MEDS: InsuLIN REG 1unit/0.01ml Soln (100units/ml) SC SCH ×4 (06:26→22:00)
[2020-09-24] MEDS: Glucerna Carbsteady SHAKE Vanilla 8oz PO SCH ×3 (08:00→18:00)
[2020-09-24] MEDS: ENOXAPARIN SOD 40 MG/0.4 ML SYRINGE SC SCH ×2 (10:00→22:02)
[2020-09-24] MEDS: ASCORBIC ACID 1,000 MG TAB PO SCH (10:00)
[2020-09-24] MEDS: ZINC SULFATE 220mg CAP or TAB PO SCH (10:00)
[2020-09-24] MEDS: CHOLECALCIFEROL (VITD3) 2,000 UNIT CAP PO SCH (10:00)
[2020-09-24] MEDS: BUDESONIDE (INHALATION) 180 MCG IH IN SCH (10:00)
[2020-09-24] MEDS: METOPROLOL TARTRATE 25 MG TAB PO SCH ×2 (11:00→22:04)
[2020-09-24] MEDS: amLODIPine BESYLATE 5 MG TAB PO SCH (11:30)
[2020-09-24] MEDS: LORazepam 2MG/ML-1ML VIAL IV PRN (17:26)
[2020-09-24 23:00] VITALS: BP 126/60
[2020-09-25] VITALS: BP 125/66
[2020-09-25] MEDS: LORazepam 2MG/ML-1ML VIAL IV PRN ×2 (01:43→11:03)
[2020-09-25] MEDS: SODIUM CHLOR 0.9% PF (SALINE LOCK) 10ML VIAL/SYR IV SCH ×2 (05:31→15:22)
[2020-09-25] MEDS: InsuLIN REG 1unit/0.01ml Soln (100units/ml) SC SCH ×2 (06:29→11:30)
[2020-09-25] MEDS: ACCU-CHEK COMFORT CURVE STRIP VI SCH ×2 (06:29→11:30)
[2020-09-25] MEDS: LEVOTHYROXINE SODIUM 50 MCG TAB PO SCH (06:31)
[2020-09-25] MEDS: hydrALAZINE HCL 25 MG TAB PO SCH (06:32)
[2020-09-25 09:00] VITALS: BP 90/58
[2020-09-25] MEDS: CHOLECALCIFEROL (VITD3) 2,000 UNIT CAP PO SCH (09:44)
[2020-09-25] MEDS: ENOXAPARIN SOD 40 MG/0.4 ML SYRINGE SC SCH (09:44)
[2020-09-25] MEDS: ZINC SULFATE 220mg CAP or TAB PO SCH (09:45)
[2020-09-25] MEDS: Glucerna Carbsteady SHAKE Vanilla 8oz PO SCH ×2 (09:45→12:00)
[2020-09-25] MEDS: METOPROLOL TARTRATE 25 MG TAB PO SCH (09:46)
[2020-09-25] MEDS: ASCORBIC ACID 1,000 MG TAB PO SCH (09:47)
[2020-09-25] MEDS: amLODIPine BESYLATE 5 MG TAB PO SCH (09:47)
[2020-09-25 13:00] VITALS: BP 95/57
[2020-09-25] MEDS ORDERED: EPINEPHrine HCL 1 MG/10 ML SYRG IV ONE (22:33)
== END 2020-09-25 22:34 | DRG 177 ==
LOC: ER 12:04 → EDBD 12:04 → TELE 12:05 → TELE-CENTR 09-09 23:31 → TELE-WESTW 09-16 16:54
PROVIDERS: ADMIT Internal Medicine; ATTEND Internal Medicine
PROC: 5A1D70Z Performance of Urinary Filtration, Intermittent, Less than 6 Hours Per Day (ICD-10-PCS; 2020-09-07)
PROC: 5A1D70Z Performance of Urinary Filtration, Intermittent, Less than 6 Hours Per Day (ICD-10-PCS; 2020-09-10)
PROC: 5A09557 Assistance with Respiratory Ventilation, Greater than 96 Consecutive Hours, Continuous Positive Airway Pressure (ICD-10-PCS; principal; 2020-09-12)
PROC: 5A1D70Z Performance of Urinary Filtration, Intermittent, Less than 6 Hours Per Day (ICD-10-PCS; 2020-09-12)
PROC: 5A1D70Z Performance of Urinary Filtration, Intermittent, Less than 6 Hours Per Day (ICD-10-PCS; 2020-09-15)
PROC: 5A1D70Z Performance of Urinary Filtration, Intermittent, Less than 6 Hours Per Day (ICD-10-PCS; 2020-09-18)
PROC: 5A1D70Z Performance of Urinary Filtration, Intermittent, Less than 6 Hours Per Day (ICD-10-PCS; 2020-09-21)
PROC: 5A1D70Z Performance of Urinary Filtration, Intermittent, Less than 6 Hours Per Day (ICD-10-PCS; 2020-09-24)
PROC: 5A12012 Performance of Cardiac Output, Single, Manual (ICD-10-PCS; 2020-09-25)
DX: U07.1 COVID-19 (principal); J12.89 Other viral pneumonia; N18.6 End stage renal disease; J96.21 Acute and chronic respiratory failure with hypoxia; A41.89 Other specified sepsis; Z68.41 Body mass index [BMI] 40.0-44.9, adult; I13.2 Hypertensive heart and chronic kidney disease with heart failure and with stage 5 chronic kidney disease, or end stage renal disease; J44.0 Chronic obstructive pulmonary disease with (acute) lower respiratory infection; I16.0 Hypertensive urgency; E87.6 Hypokalemia; Z66 Do not resuscitate; E78.5 Hyperlipidemia, unspecified; E03.9 Hypothyroidism, unspecified; E66.01 Morbid (severe) obesity due to excess calories; D63.1 Anemia in chronic kidney disease; I50.9 Heart failure, unspecified; E11.22 Type 2 diabetes mellitus with diabetic chronic kidney disease; Z99.2 Dependence on renal dialysis; Z88.2 Allergy status to sulfonamides; Z89.512 Acquired absence of left leg below knee; Z83.3 Family history of diabetes mellitus; Z82.49 Family history of ischemic heart disease and other diseases of the circulatory system; Z87.891 Personal history of nicotine dependence; Z89.612 Acquired absence of left leg above knee; Z79.899 Other long term (current) drug therapy
CPT/HCPCS: 36415; 36600; 71045; 80048; 80053; 80307; 81001; 82088; 82306; 82550; 82570; 82728; 82805; 82962; 83036; 83605; 83735; 83880; 83930; 83935; 83970; 84100; 84133; 84156; 84244; 84300; 84484; 85025; 85379; 85652; 86141; 87040; 87426; 90935; 93005; 94640; 94660; G0378; J0330; J0696; J0885; J1100; J1815; J3490